=== PATIENT | female | born 1980 | race African-American/Black ===

== ENCOUNTER 2019-03-25 10:20 | Inpatient (IN) | payer SELFPAY ==
[~2019-03-25] VITALS: Ht 162.6 cm; Wt 64.2 kg
[~2019-03-25 10:20] MED LIST: ALBUTEROL0.09 MG/A2 IH; PREDNISONE10 MG PO
[2019-03-25 10:26] VITALS: BP 124/82; BP 150/107
[2019-03-25 11:05] LABS: BASO % 0.1 % (0.0-1.0); EOS % 0.1 % (1.0-4.0); HEMATOCRIT 42.6 % (37.0-47.0); HEMOGLOBIN 13.7 g/dl (12.0-16.0); LYMPH # 0.6 10*3/uL (1.3-4.4); LYMPH % 6.4 % (27.0-41.0); MEAN CELL VOLUME 82.2 fl (81.0-99.0); MEAN CORPUSCULAR HGB 26.4 pg (27.0-31.0); MEAN CORPUSCULAR HGB CONC 32.2 g/dl (33.0-37.0); MEAN PLATELET VOLUME 10.8 fl (9.6-12.3); MONO # 0.6 10*3/uL (0.1-1.0); MONO % 7.2 % (3.0-9.0); NEUT # 7.4 10*3/uL (2.3-7.9); PLATELET COUNT AUTOMATED 249 10*3/uL (130-400); RED BLOOD COUNT 5.18 10*6/uL (4.10-5.10); RED CELL DISTRI WIDTH 16.1 % (0-14.5); WHITE BLOOD COUNT 8.6 10*3/uL (4.8-10.8)
[2019-03-25 11:21] LABS: ACT PARTIAL THROMBO TIME 25.1 SECONDS (20.0-32.1); INTERNATIONAL NORM RATIO 0.9 (2.0-3.5)
[2019-03-25 11:31] LABS: BETA-HCG, QUANT < 1.0 mIU/mL (1-3); LIPASE 96 U/L (73-393)
[2019-03-25 11:36] LABS: ALBUMIN 3.8 gm/dl (3.1-4.5); ALKALINE PHOSPHATASE 62 U/L (45-117); CHLORIDE 107 mmol/L (98-107); CREATININE 0.63 mg/dL (0.55-1.02); POTASSIUM 4.2 mmol/L (3.5-5.1); SODIUM 140 mmol/L (136-145); TOTAL PROTEIN 8.2 gm/dL (6.4-8.2)
[2019-03-25 11:40] LABS: BILIRUBIN NEGATIVE (NEGATIVE); BLOOD NEGATIVE (NEGATIVE); CLARITY CLOUDY (CLEAR); COLOR YELLOW (YELLOW); GLUCOSE NEGATIVE (NEGATIVE); KETONE 1+ (NEGATIVE); LEUKO ESTERASE TRACE (NEGATIVE); NITRITE NEGATIVE (NEGATIVE); PH 5.5 (5.0-9.0); SPECIFIC GRAVITY >= 1.030 (1.005-1.030); UROBILINOGEN 0.2 E.U./dl (0.2-1.0)
[2019-03-25 11:52] LABS: BACTERIA 4+; EPITHELIAL CELLS 45-50; MUCOUS 2+; WBC 41-50 wbc/hpf (0-5)
[2019-03-25 11:56] LABS: BUN 9 mg/dl (7-24); ETHYL ALCOHOL < 3.0 mg/dl (<3); SGOT/AST 14 IU/L (3-35); SGPT/ALT 19 U/L (12-78)
[2019-03-25 11:58] LABS: URINE AMPHETAMINES > 1000 (1000ng/ml); URINE BARBITURATES < 200 (200ng/ml); URINE BENZODIAZEPINES < 200 (200ng/ml); URINE CANNABINOIDS (THC) > 50 (50ng/ml); URINE COCAINE > 300 (300ng/ml); URINE METHADONE < 300 (300ng/ml); URINE OPIATES < 300 (300ng/ml); URINE PHENCYCLIDINE < 25 (25ng/ml)
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
[2019-03-25 12:58] VITALS: BP 124/78
[2019-03-25 13:55] VITALS: BP 121/80
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
--- NOTE | 2019-03-25 14:04 | NUR ---
HEALING SCABS NOTED TO LOWER BACK
[2019-03-25] MEDS ORDERED: LAMICTAL100 MG PO (14:18)
[2019-03-25] MEDS ORDERED: REMERON30 M1 PO (14:19)
--- NOTE | 2019-03-25 15:50 | NUR ---
CALLED [facility] CONSULT. THEY STATED THAT THEY ALREADY RECEIVED IT IN A FAX. CONSULT COMPLETE.
--- NOTE | 2019-03-25 15:51 | NUR ---
NOTIFIED DR. GLASGOW OF PT'S TWO HOME MEDICATIONS.
[2019-03-25 16:00] VITALS: BP 1118/53; BP 118/53
--- NOTE | 2019-03-25 17:26 | NUR ---
24 HR chart check completed.
--- NOTE | 2019-03-25 19:05 | NUR ---
MORE INFORMATION WAS GIVEN TO NIESHA ON U ABOUT CONSULT
[2019-03-25 20:00] VITALS: BP 131/86
[2019-03-26] VITALS: BP 130/90
--- NOTE | 2019-03-26 02:18 | NUR ---
Patient resting quietly with no c/o discomfort. Respirations easy and regular. Vital signs stable. No overt distress. LANG DESAI
[2019-03-26 05:55] LABS: BASO % 0.4 % (0.0-1.0); EOS # 0.1 10*3/uL (0.0-0.4); HEMATOCRIT 39.5 % (37.0-47.0); HEMOGLOBIN 12.6 g/dl (12.0-16.0); LYMPH % 27.6 % (27.0-41.0); MEAN CELL VOLUME 81.8 fl (81.0-99.0); MEAN CORPUSCULAR HGB 26.1 pg (27.0-31.0); MEAN CORPUSCULAR HGB CONC 31.9 g/dl (33.0-37.0); MONO # 0.8 10*3/uL (0.1-1.0); MONO % 10.8 % (3.0-9.0); NEUT # 4.3 10*3/uL (2.3-7.9); NEUT % 59.9 % (47.0-73.0); PLATELET COUNT AUTOMATED 229 10*3/uL (130-400); RED BLOOD COUNT 4.83 10*6/uL (4.10-5.10); RED CELL DISTRI WIDTH 16.1 % (0-14.5); WHITE BLOOD COUNT 7.2 10*3/uL (4.8-10.8)
[2019-03-26 05:56] LABS: ALKALINE PHOSPHATASE 49 U/L (45-117); BUN 5 mg/dl (7-24); CHLORIDE 108 mmol/L (98-107); CHOLESTEROL 132 mg/dL (<200); CREATININE 0.65 mg/dL (0.55-1.02); FREE T4 0.96 ng/dl (0.76-1.46); HDL CHOLESTEROL 58 mg/dl (40-60); LDL CHOLESTEROL 59 mg/dL (9-159); PHOSPHOROUS 2.7 mg/dL (2.5-4.9); POTASSIUM 3.3 mmol/L (3.5-5.1); SGOT/AST 12 IU/L (3-35); SGPT/ALT 16 U/L (12-78); SODIUM 140 mmol/L (136-145); TOTAL PROTEIN 6.5 gm/dL (6.4-8.2); TRIGLYCERIDES 74 mg/dl (<150); VLDL CHOLESTEROL 15 mg/dL (6-40)
[2019-03-26 06:35] LABS: ACT PARTIAL THROMBO TIME 26.5 SECONDS (20.0-32.1); INTERNATIONAL NORM RATIO 0.9 (2.0-3.5)
[2019-03-26 06:49] LABS: VITAMIN D, 25-HYDROXY 27.7 ng/mL (30-100)
[2019-03-26 08:00] VITALS: BP 125/67
--- NOTE | 2019-03-26 09:00 | NUR ---
Supervisor Plate Forming in to talk to patient. Patient states lives at home with alone. There are few steps in the home. Physician: none [facility]acy: [facility] Home health services: none Patient's level of ADLs: INDEPENDENT Patient has working utilities: all working DME: none Follow-up physician's appointment after d/c: will be made by hospitalist nurse director upon discharge Does patient want to access PORTAL?: no Discharge plan discussed with patient, she lives at home, is independent in adls and ambulation, she states she will return home when medically stable and denies any home needs, case management will follow. BORIS GENTILE
[2019-03-26 12:00] VITALS: BP 132/89
--- NOTE | 2019-03-26 12:30 | NUR ---
NEIL KIM IN TO SEE PATIENT REGARDING CONSULT.
--- NOTE | 2019-03-26 13:28 | NUR ---
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
[2019-03-26] MEDS ORDERED: MINIPRESS1 M1 PO (16:07)
--- NOTE | 2019-03-26 16:21 | NUR ---
Discharge instructions reviewed with patient/family. Patient receptive and verbalizes understanding. Follow-up care arranged. Written instructions given to patient/family. STEPHANIE PUGA.
== END 2019-03-26 16:21 | disposition home or self-care (01) | DRG 640 ==
LOC: ED 10:20 → EDHOLD 12:42 → 4E 12:42
PROVIDERS: Emergency Medicine; Family Medicine; Internal Medicine; ADMIT Internal Medicine
DX: E86.0 Dehydration (principal); G93.41 Metabolic encephalopathy; N39.0 Urinary tract infection, site not specified; R73.9 Hyperglycemia, unspecified; R19.7 Diarrhea, unspecified; F43.10 Post-traumatic stress disorder, unspecified; R00.1 Bradycardia, unspecified; F31.9 Bipolar disorder, unspecified; F15.129 Other stimulant abuse with intoxication, unspecified; F12.129 Cannabis abuse with intoxication, unspecified; F14.129 Cocaine abuse with intoxication, unspecified; F41.9 Anxiety disorder, unspecified; E55.9 Vitamin D deficiency, unspecified; E87.6 Hypokalemia; Z82.49 Family history of ischemic heart disease and other diseases of the circulatory system; Z83.3 Family history of diabetes mellitus; Z79.899 Other long term (current) drug therapy

== ENCOUNTER 2023-10-12 22:03 | Emergency (ER) | payer MEDICAID ==
[~2023-10-12] VITALS: Ht 165.1 cm; Wt 54.4 kg
[~2023-10-12 22:03] MED LIST changes: +LAMICTAL100 MG PO; +MINIPRESS1 M1 PO; +REMERON30 M1 PO
[2023-10-12 22:10] VITALS: BP 128/92
[2023-10-12] MEDS ORDERED: Amoxicillin/Clavulanate Pota 875 MG TAB PO ONE (22:30)
[2023-10-12] MEDS ORDERED: Tdap Vaccine 0.5 ML SYR (Adult Vaccine) IM ONE (22:30)
[2023-10-12] MEDS ORDERED: AMOX-CLAV 875-1 EACH PO (22:44)
[2023-10-12] MEDS ORDERED: IBUPROFEN 600 MG TAB PO ONE (23:05)
== END 2023-10-12 23:13 | disposition home or self-care (01) ==
LOC: ED 22:03
DX: S61.412A Laceration without foreign body of left hand, initial encounter (principal); F31.9 Bipolar disorder, unspecified; F41.9 Anxiety disorder, unspecified; F14.10 Cocaine abuse, uncomplicated; F12.10 Cannabis abuse, uncomplicated; W25.XXXA Contact with sharp glass, initial encounter; Y93.89 Activity, other specified; Y92.89 Other specified places as the place of occurrence of the external cause; Y99.8 Other external cause status